=== PATIENT | male | born 1975 | race African-American/Black ===

== ENCOUNTER 2021-03-11 16:29 | Emergency (ER) | payer OTHER ==
[2021-03-11 16:43] VITALS: BP 118/76; PULSE 78; TEMP 98.5; BMI 27.7
[2021-03-11] MEDS ORDERED: ACETAMINOPHEN 500 MG TABLET (FP) PO ONE (18:02)
[2021-03-11] MEDS ORDERED: PSEUDOEPHEDRINE HCL 30 MG TABLET PO ONE (18:03)
[2021-03-11] MEDS ORDERED: ACETAMINOPHEN 500 MG TABLET (FP) ONE (18:06)
[2021-03-11] MEDS ORDERED: PSEUDOEPHEDRINE HCL 60 MG TABLET ONE (18:07)
== END 2021-03-11 18:45 | disposition home or self-care (01) ==
LOC: JERFT 16:29 → JER 16:29 → JERFT 18:45
DX: J02.9 Acute pharyngitis, unspecified (principal); J01.11 Acute recurrent frontal sinusitis; Z11.52 Encounter for screening for COVID-19
CPT/HCPCS: 87880; 99283-25; C9803; U0003; U0005

== ENCOUNTER 2022-10-12 22:16 | Emergency (ER) | payer OTHER ==
[2022-10-12 22:25] VITALS: BP 149/93; PULSE 84; RESP 20; TEMP 98; BMI 26.6
[2022-10-12] MEDS ORDERED: ACETAMINOPHEN 325 MG TABLET (FP) PO ONE (22:48)
[2022-10-12] MEDS ORDERED: POLYETHYLENE GLYCOL (HEALTHYLAX) 3350 17 GM PACKET PO ONE (23:00)
[2022-10-12] MEDS ORDERED: ACETAMINOPHEN 325 MG TABLET (FP) ONE (23:02)
[2022-10-12] MEDS ORDERED: POLYETHYLENE GLYCOL (HEALTHYLAX) 3350 17 GM PACKET ONE (23:02)
[2022-10-12 23:05] LABS: BASO % 1.4 % (0-2.0); EOS % 0.7 % (0-4.5); HEMATOCRIT 38.9 % (35.4-49); HEMOGLOBIN 12.9 GM/dL (11.7-16.9); LYMPH % 33.7 % (8-40); MCH 26.8 pg (25.7-33.7); MCHC 33.3 g/dl (32.0-35.9); MEAN CELL VOLUME 80.4 fl (80-96); MEAN PLT VOLUME 8.5 fl (7.5-11.1); NEUT % 55.2 % (42.8-82.8); PLATELET COUNT 298 10^3/uL (134-434); RBC 4.84 M/mm3 (4.00-5.60); RDW 13.8 % (11.9-15.9); WHITE BLOOD COUNT 7.4 K/mm3 (4.0-10.0)
[2022-10-12 23:29] LABS: POTASSIUM 3.9 mmol/L (3.5-5.1)
[2022-10-12 23:31] LABS: ALBUMIN 4.1 g/dl (3.4-5.0); BLOOD UREA NITROGEN 18.4 mg/dL (7-18); CALCIUM 9.6 mg/dL (8.5-10.1); MAGNESIUM 2.3 mg/dL (1.8-2.4)
[2022-10-12 23:34] LABS: CREATININE 1.4 mg/dL (0.55-1.3); PHOSPHOROUS 3.8 mg/dL (2.5-4.9)
[2022-10-12 23:36] LABS: BILIRUBIN,TOTAL 0.7 mg/dL (0.2-1); TOT PROT 7.7 g/dl (6.4-8.2)
== END 2022-10-13 00:37 | disposition home or self-care (01) ==
LOC: JER 22:16
DX: K59.00 Constipation, unspecified (principal); Z20.822 Contact with and (suspected) exposure to COVID-19
CPT/HCPCS: 0241U-QW; 36415; 71046-TC-FY; 80053; 83735; 84100; 85025; 93005; 93010; 99285-25